=== PATIENT | male | born 1950 | race Caucasian/White ===

== ENCOUNTER 2017-06-26 11:41 | Emergency (ER) | payer OTHER ==
[~2017-06-26] VITALS: Ht 177.8 cm; Wt 85.1 kg
[~2017-06-26 11:41] MED LIST: ASPCH81 PO; CHOL100010 PO; CLOP1TAB15 PO; FLUT0.0529 INTNAS; HYDR25TA4 PO; MISCCAP80; POTA-327 PO; POTA-335 PO; PRLSR20 PO; ROSU20TA PO; SILD100T PO
[2017-06-26 11:43] VITALS: TEMP 36.7; Ht 177.8 cm; Wt 85.1 kg
[2017-06-26] MEDS ORDERED: XYLOCAINE 1%/SOD BICARB 20 ML VIAL INFIL ONE (11:50)
--- NOTE | 2017-06-26 12:31 | EMERGENCY ROOM VISIT NOTE ---
ED Visit Note First contact with patient: 11:47 CHIEF COMPLAINT: Left thumb laceration this morning HISTORY OF PRESENT ILLNESS: Patient is a [id number] 67-year-old white male who presents the emergency department for evaluation of a laceration to his left thumb that he sustained at home while doing some woodworking today. He was using a hole saw to cut a large hole through a piece of wood when the sawblade jumped, and struck him on the back of the left thumb, causing the laceration described below. He was able to get bleeding controlled with pressure. He reports full range of motion of the thumb and denies weakness or numbness the thumb. He went to a [facility] doctor's office, where they briefly evaluated his wound, then referred him to the emergency department for wound repair. REVIEW OF SYSTEMS: Review of systems as per HPI. All other systems reviewed were negative. At least 6 systems reviewed. PMH: Electronic medical records are reviewed and summarized as above/below. See Problem List. His tetanus is up-to-date. SOCIAL HISTORY: Patient lives at home with his . Non-smoker. PHYSICAL EXAM: Vital Signs: Reviewed Nurse's notes. There is a 1.5 cm long laceration on the radial aspect of the left thumb, over the first MCP. The edges are gaping apart. There is no foreign material in the wound and it looks clean. There is no active bleeding. No deep structures such as tendons or nerves are seen in the base of the wound. Extension, flexion and abduction and adduction of the thumb is full and strong. Sensation to pain and light touch is intact. EMERGENCY DEPARTMENT COURSE: The patient was seen and evaluated. He was offered radiographs, and the importance of checking a radiograph given the mechanism and injury was discussed, however he is refusing this. Using sterile technique, saline and Betadine cleansing, and 1% lidocaine anesthesia, the laceration was irrigated with saline and then repaired with 4-0 nylon sutures. By exam, he does not appear to have suffered any nerve or tendinous injury. Fracture was felt to be less likely. There is no obvious evidence for foreign body. Medication reconciliation: I attest that I have personally reviewed the patient' s current medication list. Blood pressure screening: Patient was found to have a slightly elevated blood pressure due to circumstances. I do not believe that the patient requires hypertension monitoring. 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 3. Status post radiation to the head and neck region for unknown primary completing on 11/10/2004. 4. High-grade stenosis of the left carotid artery. 5 status post placement of left carotid stent. Status: Resolved (5) Unspecified Sleep Apnea Status: Chronic Current/Historical Medications Unable to Obtain Active Prescriptions or Reported Meds Allergies Coded Allergies: Sulfa Drugs (Verified Allergy, Intermediate, HIVES, 09/14/10) Cephalosporins (Verified Allergy, Unknown, 09/14/10) Lisinopril (Unverified Adverse Reaction, Intermediate, cough, 09/24/12) Vital Signs Date Time Temp Pulse Resp B/P (MAP) Pulse Ox O2 Delivery O2 Flow Rate FiO2 06/26/17 12:52 62 16 142/87 95 06/26/17 11:43 36.7 67 20 161/87 97 Room Air Departure Information Impression Primary Impression: Thumb laceration Prescriptions Unable to Obtain Active Prescriptions or Reported Meds Referrals No Doctor, Assigned (PCP) Patient Instructions My [facility] Additional Instructions Keep wound clean and dry. Do not allow any crusting or dried blood to accumulate on sutures. If this occurs, use a 1:1 solution of hydrogen peroxide/ water on a Q-tip to clean the wound. Use an antibiotic ointment for 3-4 days, then let wound dry. Suture removal in 12-14 days. Return sooner for any signs of infection (increasing redness, swelling, drainage). Ice and elevate for swelling and pain. Ibuprofen 600 mg and Tylenol 1000 mg every 6 hrs for pain.
[2017-06-26 12:52] VITALS: BP 142/87; PULSE 62; O2SAT 95
== END 2017-06-26 13:08 | disposition home or self-care (01) ==
LOC: C.EDB 11:42 → C.EDD 13:08
DX: S61.012A Laceration without foreign body of left thumb without damage to nail, initial encounter (principal); I25.10 Atherosclerotic heart disease of native coronary artery without angina pectoris; K21.9 Gastro-esophageal reflux disease without esophagitis; I10 Essential (primary) hypertension; G47.30 Sleep apnea, unspecified; Z85.89 Personal history of malignant neoplasm of other organs and systems; W27.0XXA Contact with workbench tool, initial encounter; Y93.89 Activity, other specified; Z88.1 Allergy status to other antibiotic agents; Z88.2 Allergy status to sulfonamides; Z88.8 Allergy status to other drugs, medicaments and biological substances